=== PATIENT | female | born 1960 | race Caucasian/White ===

== ENCOUNTER → 2018-04-18 | Outpatient (CLI) | payer OTHER ==
[~2018-04-18] MED LIST: CETI10CA PO; LOSA1TAB7 PO; RANI150T23 PO; THYR60TA PO
[2018-04-18 15:23] LABS: MICROSCOPIC NOT IND
[2018-04-18 15:30] LABS: CULTURE INDICATED? NO
[2018-04-18 15:36] LABS: ALANINE AMINOTRANSFERASE 34 U/L (12-78); ALBUMIN 3.6 g/dL (3.4-5.0); ANION GAP 5 mmol/L (5-15); CHLORIDE 109 mmol/L (98-107); CREATININE 0.75 mg/dL (0.55-1.02)
[2018-04-18 15:37] LABS: BASOPHILS # (AUTO) 0.02 x10^3/uL (0-0.1); BASOPHILS % (AUTO) 0 % (0-1); EOSINOPHILS # (AUTO) 0.13 x10^3/uL (0-0.4); EOSINOPHILS % (AUTO) 2 % (1-7); LYMPHOCYTES # (AUTO) 2.15 x10^3/uL (1-3.4); LYMPHOCYTES % (AUTO) 27 % (22-44); MD NO; MEAN CORPUSCULAR HEMOGLOBIN 30.1 pg (27.0-34.8); MEAN CORPUSCULAR HGB CONC 33.1 g/dL (32.4-35.8); MEAN CORPUSCULAR VOLUME 91.2 fL (80-100); MEAN PLATELET VOLUME 8.1 fL (7.4-10.4); MONOCYTES # (AUTO) 0.46 x10^3/uL (0.2-0.8); MONOCYTES % (AUTO) 6 % (2-9); NEUTROPHILS # (AUTO) 5.23 x10^3/uL (1.8-6.8); NEUTROPHILS % (AUTO) 66 % (42-75); PLATELET COUNT 243 x10^3/uL (130-400); RED BLOOD COUNT 5.12 x10^6/uL (3.82-5.3); RED CELL DISTRIBUTION WIDTH 15.2 % (9.6-15.2)
[2018-04-18 15:38] LABS: ALKALINE PHOSPHATASE 72 U/L (45-117); BILIRUBIN,TOTAL 0.6 mg/dL (0.2-1.0); TOTAL PROTEIN 7.4 g/dL (6.4-8.2)
== END | disposition home or self-care (01) ==
LOC: STAR 14:27
PROVIDERS: ATTEND Obstetrics & Gynecology
DX: Z01.818 Encounter for other preprocedural examination (principal); I10 Essential (primary) hypertension; M47.814 Spondylosis without myelopathy or radiculopathy, thoracic region; Z78.0 Asymptomatic menopausal state; N94.10 Unspecified dyspareunia
CPT/HCPCS: 36415; 71046; 80053; 81003; 85025; 93005

== ENCOUNTER 2018-04-22 05:08 | Day surgery (SDC) | payer OTHER ==
[~2018-04-22] VITALS: Ht 177.8 cm; Wt 137.0 kg
[2018-04-22] MEDS ORDERED: LACTATED RINGERS 1,000 ML IV SCH (05:53)
[2018-04-22 06:24] VITALS: BP 119/82
[2018-04-22] MEDS ORDERED: VASOPRESSIN 20 UNIT/ML, 1ML ONE (06:28)
[2018-04-22] MEDS ORDERED: BUPIVACAINE/PF 0.25% ONE (06:28)
[2018-04-22] MEDS ORDERED: FENTANYL PF 250 MCG/5ML ONE (06:59)
[2018-04-22] MEDS ORDERED: MIDAZOLAM 1 MG/ML, 2ML ONE (06:59)
[2018-04-22] MEDS ORDERED: SUCCINYLCHOLINE 20 MG/ML, 10ML ONE (07:01)
[2018-04-22] MEDS ORDERED: ONDANSETRON 2MG/ML, 2ML ONE (07:01)
[2018-04-22] MEDS ORDERED: DEXAMETHASONE 4 MG/ML, 5ML ONE (07:01)
[2018-04-22] MEDS ORDERED: PROPOFOL 10 MG/ML, 20ML ONE (07:01)
[2018-04-22] MEDS ORDERED: ALBUTEROL SULFATE 2.5 MG/3 ML NPPB PRN (07:30)
[2018-04-22] MEDS ORDERED: MEPERIDINE/PF 25MG/0.5ML IVPush PRN (07:30)
[2018-04-22] MEDS ORDERED: hydrALAzine 20 MG/ML, 1ML IV PRN (07:30)
[2018-04-22] MEDS ORDERED: HALOPERIDOL 5 MG/ML IV PRN (07:30)
[2018-04-22] MEDS ORDERED: OXYcodone 5 MG/5 ML ORAL.SOL UDC PO PRN (07:30)
[2018-04-22] MEDS ORDERED: PROMETHAZINE 25 MG/ML, 1ML IV PRN (07:30)
[2018-04-22] MEDS ORDERED: HYDROmorphone 2 MG/ML, 1ML IVPush PRN (07:30)
[2018-04-22] MEDS ORDERED: FENTANYL PF 100 MCG/2ML IV PRN (07:30)
[2018-04-22] MEDS ORDERED: ACETAMINOPHEN 325 MG TABLET PO PRN (07:30)
== END 2018-04-22 09:50 | disposition home or self-care (01) ==
LOC: OUT 05:08
PROVIDERS: ATTEND Obstetrics & Gynecology
DX: N95.0 Postmenopausal bleeding (principal); I10 Essential (primary) hypertension; G47.33 Obstructive sleep apnea (adult) (pediatric); E66.9 Obesity, unspecified; Z68.42 Body mass index [BMI] 45.0-49.9, adult; Z88.5 Allergy status to narcotic agent; Z88.8 Allergy status to other drugs, medicaments and biological substances
CPT/HCPCS: 58558; 88305; J0330; J1100; J2250; J2405; J2704; J3010; J3490; J7120